=== PATIENT | male | born 1930 | race Caucasian/White ===

== ENCOUNTER 2018-05-26 11:32 | Inpatient (IN) | payer MEDICARE, BC ==
[2018-05-26] MEDS ORDERED: CLINDAMYCIN 600MG/50ML PREMIX 600 MG/50 ML BAG IVPB ONE (11:49)
[2018-05-26 12:04] LABS: BASO % 0.4 % (0-6); EOS % 0.7 % (0-6); GRAN % 78.7 % (47-80); LYMPH % 8.8 % (16-45); MEAN CELL VOLUME 93.2 fl (81-97); MEAN CORPUSCULAR HEMOGLOBIN 31.1 pg (27-33); MEAN CORPUSCULAR HGB CONC 33.3 g/dl (32-36); MONO % 11.4 % (0-9); PLATELET COUNT 301 K/uL (130-400); RED BLOOD COUNT 5.15 M/uL (4.40-5.70); WHITE BLOOD COUNT W/O DIFF 12.3 K/uL (4.2-12.2)
[2018-05-26 12:15] LABS: BLOOD UREA NITROGEN 17 mg/dL (8-23); CREATININE 1.1 mg/dL (0.7-1.2); EST GLOMERULAR FILTRATION RATE > 60 mL/min
[2018-05-26 12:17] LABS: GLUCOSE,RANDOM 125 mg/dL (74-109)
--- NOTE | 2018-05-26 12:41 | Emergency Department Record ---
History of Present Illness - General Chief complaint: Mouth sores/ulcers Stated complaint: INFECTION IN MOUTH Time Seen by Provider: 05/26/18 11:47 Source: Patient, RN notes reviewed Mode of Arrival: Ambulatory - History of Present Illness Initial comments: swollen left cheek which started about one week ago and he thought it was dental and called his dentist and started on oral clindamycin 150 mg last night and when he saw the dentist today the person had a swollen parotid gland and when the gland was milked pus came out of stensons duct in the mouth left side. dentist sent him to ED. Onset/Timin -: Week(s) Consistency: Constant Improves with: None Worsens with: Other Context- Dental: Other Associated Symptoms: Other - Related Data Home Medications Medication Instructions Recorded Confirmed Last Taken Clindamycin HCl 150 mg PO DAILY 05/26/18 05/26/18 Unknown Allergies Allergy/AdvReac Type Severity Reaction Status Date / Time cephalexin monohydrate Allergy Unknown RASH Unverified 04/27/15 00:55 [From KEFLEX] doxycycline [DOXYCYCLINE] Allergy Unknown RASH Unverified 04/27/15 00:55 hydrocodone bitartrate Allergy Unknown RASH Verified 05/26/18 11:42 [From VICODIN] sulfamethoxazole Allergy Unknown RASH Unverified 04/27/15 00:55 [From BACTRIM] trimethoprim [From BACTRIM] Allergy Unknown RASH Unverified 04/27/15 00:55 Travel Screening - Travel/Exposure Within Last 30 Days Have you traveled within the last 30 days?: No Review of Systems Reviewed: No additional complaints except as noted below Constitutional: Reports: As per HPI. Denies: Chills, Fever, Malaise, Night sweats, Weakness, Weight change Eyes: Reports: As per HPI. Denies: Eye discharge, Eye pain, Photophobia, Vision change ENT: Reports: As per HPI, Dental pain, Other (dental carries bad and left parotid gland swollen and pus comming from joe's duct ). Denies: Congestion , Ear pain, Epistaxis, Hearing loss, Throat pain Respiratory: Reports: As per HPI. Denies: Cough, Dyspnea, Hemoptysis, Stridor, Wheezes Cardiovascular: Reports: As per HPI. Denies: Arrhythmia, Chest pain, Dyspnea on exertion, Edema, Murmurs, Orthopnea, Palpitations, Paroxysmal nocturnal dyspnea, Rheumatic Fever, Syncope Endocrine: Reports: As per HPI. Denies: Fatigue, Heat or cold intolerance, Polydipsia, Polyuria Gastrointestinal: Reports: As per HPI. Denies: Abdominal pain, Constipation, Diarrhea, Hematemesis, Hematochezia, Melena, Nausea, Vomiting Genitourinary: Reports: As per HPI. Denies: Dysuria, Frequency, Hematuria, Incontinence, Retention, Testicular pain, Testicular mass, Urgency Musculoskeletal: Reports: As per HPI. Denies: Arthralgia, Back pain, Gout, Joint swelling, Myalgia, Neck pain Skin: Reports: As per HPI. Denies: Bruising, Change in color, Change in hair/ nails, Lesions, Pruritus, Rash Neurological: Reports: As per HPI. Denies: Abnormal gait, Confusion, Headache, Numbness, Paresthesias, Seizure, Tingling, Tremors, Vertigo, Weakness Psychiatric: Reports: As per HPI. Denies: Anxiety, Auditory hallucinations, Depression, Homicidal thoughts, Suicidal thoughts, Visual hallucinations Hematological/Lymphatic: Reports: As per HPI. Denies: Anemia, Blood Clots, Easy bleeding, Easy bruising, Swollen glands Past Medical History - SOCIAL HISTORY Smoking Status: Current every day smoker - RESPIRATORY Hx Respiratory Disorders: No - CARDIOVASCULAR Hx Cardio Disorders: Yes Hx Heart Attack: Yes Comment:: bradycardia - NEURO Hx Neuro Disorders: No - GI Hx GI Disorders: No - Hx Genitourinary Disorders: Yes Hx Bladder Problem: Yes (hx of cancer) Hx Kidney Stones: (hx) - ENDOCRINE Hx Endocrine Disorders: No Hx Diabetes: No Hx Thyroid Disease: No - MUSCULOSKELETAL Hx Musculoskeletal Disorders: No - PSYCH Hx Psych Problems: No - HEMATOLOGY/ONCOLOGY Hx Hematology/Oncology Disorders: Yes Hx Cancer: Yes Hx Chemotherapy: Yes Hx Radiation Therapy: No Family Medical History Any Significant Family History?: Yes Hx HTN: Father Physical Exam - General General Appearance: Alert, Oriented x3, Cooperative, No acute distress - Head Head exam: Normal inspection - Eye Eye exam: Normal appearance, PERRL Pupils: Normal accommodation - ENT ENT exam: Normal exam, Mucous membranes moist, Normal external ear exam, Normal orophraynx, TM's normal bilaterally Ear exam: Normal external inspection. negative: External canal tenderness Nasal Exam: Normal inspection. negative: Discharge, Sinus tenderness Mouth exam: Normal external inspection, Tongue normal Teeth exam: Dental caries, Dental tenderness #, Fractured tooth #, Other ( purulent drainage from joe's duct) Throat exam: Normal inspection. negative: Tonsillar erythema, Tonsillar exudate - Neck Neck exam: Normal inspection, Full ROM. negative: Tenderness - Respiratory Respiratory exam: Normal lung sounds bilaterally. negative: Respiratory distress - Cardiovascular Cardiovascular Exam: Regular rate, Normal rhythm, Normal heart sounds - GI/Abdominal GI/Abdominal exam: Soft, Normal bowel sounds. negative: Tenderness - Rectal Rectal exam: Deferred - exam: Deferred - Extremities Extremities exam: Normal inspection, Full ROM, Normal capillary refill. negative: Tenderness - Back Back exam: Reports: Normal inspection, Full ROM. Denies: Muscle spasm, Rash noted, Tenderness - Neurological Neurological exam: Alert, Normal gait, Oriented X3, Reflexes normal - Psychiatric Psychiatric exam: Normal affect, Normal mood - Skin Skin exam: Dry, Intact, Normal color, Warm Course Vital Signs 05/26/18 11:34 Temperature 97.6 F Pulse Rate 56 L Respiratory 20 Rate Blood Pressure 152/76 Pulse Ox 97 - Reevaluation(s) Reevaluation #1: 05/26/18 13:00 starting vancomycin 1 gm IV and pharmacy recommended every 18 hours Reevaluation #2: discussed case with Dr. Burgess and she agreed to admit 05/26/18 13:15 Medical Decision Making - Data Complexity MDM Data: Labs Ordered and/or Reviewed (WBC12,200) - Lab Data Result diagrams: 05/26/18 11:55 05/26/18 11:55 Lab Results 05/26/18 05/26/18 Range/Units 11:55 11:55 WBC 12.3 H (4.2-12.2) K/uL RBC 5.15 (4.40-5.70) M/uL Hgb 16.0 (14.0-18.0) gm/dl Hct 48.0 (42.0-52.0) % MCV 93.2 (81-97) fl MCH 31.1 (27-33) pg MCHC 33.3 (32-36) g/dl RDW 16.0 H (11.5-14.5) % Plt Count 301 (130-400) K/uL MPV 10.0 (7.4-10.4) fl Gran % 78.7 (47-80) % Lymphocytes % 8.8 L (16-45) % Monocytes % 11.4 H (0-9) % Eosinophils % 0.7 (0-6) % Basophils % 0.4 (0-6) % Sodium 141 (136-145) mmol/L Potassium 3.9 (3.4-4.5) mmol/L Chloride 99 (98-107) mmol/L Carbon Dioxide 27.0 (22-29) mmol/L Anion Gap 15.0 (7-16) BUN 17 (8-23) mg/dL Creatinine 1.1 (0.7-1.2) mg/dL Estimated GFR > 60 mL/min Random Glucose 125 H (74-109) mg/dL Calcium 9.6 (8.8-10.2) mg/dL Disposition Clinical Impression: Parotiditis Decision to Admit: Admit from ER Condition: (1) Good Forms: Patient Portal Access Time of Disposition: 12:45 Quality - Quality Measures Quality Measures: N/A - Blood Pressure Screening Does Patient Have Any of the Following: No, Active Dx of HTN Blood Pressure Classification: Hypertensive Reading Systolic Measurement: 152 Diastolic Measurement: 76 Screening for High Blood Pressure: Patient Exclusion, Hx of HTN [[id number]]
[2018-05-26] MEDS ORDERED: VANCOMYCIN HCL 1,000 MG in DEXTROSE 5 % IN WATER 250 ML IVPB ONE ×2 (12:45)
[2018-05-26] MEDS ORDERED: ACETAMINOPHEN 325 MG TAB PO PRN (13:51)
[2018-05-26] MEDS: 0.9 % SODIUM CHLORIDE 1000ML 1,000 ML IV PRN (17:59)
[2018-05-26] MEDS: CLINDAMYCIN 600MG/50ML PREMIX 600 MG/50 ML BAG IVPB SCH ×2 (17:59→23:18)
[2018-05-26] MEDS: IBUPROFEN 400 MG TABLET PO PRN (18:05)
[2018-05-27] MEDS: IBUPROFEN 400 MG TABLET PO PRN (05:19)
[2018-05-27] MEDS: CLINDAMYCIN 600MG/50ML PREMIX 600 MG/50 ML BAG IVPB SCH ×3 (05:19→17:45)
[2018-05-27 06:12] LABS: HEMATOCRIT 44.2 % (42.0-52.0); HEMOGLOBIN 14.5 gm/dl (14.0-18.0); MEAN CELL VOLUME 93.8 fl (81-97); MEAN CORPUSCULAR HEMOGLOBIN 30.8 pg (27-33); MEAN CORPUSCULAR HGB CONC 32.8 g/dl (32-36); MEAN PLATELET VOLUME 11.3 fl (7.4-10.4); PLATELET COUNT 252 K/uL (130-400); RED BLOOD COUNT 4.71 M/uL (4.40-5.70); RED CELL DISTRIBUTION WIDTH 16.1 % (11.5-14.5); WHITE BLOOD COUNT W/O DIFF 11.1 K/uL (4.2-12.2)
[2018-05-27 06:23] LABS: BLOOD UREA NITROGEN 18 mg/dL (8-23); CREATININE 1.2 mg/dL (0.7-1.2); EST GLOMERULAR FILTRATION RATE > 60 mL/min; GLUCOSE,RANDOM 86 mg/dL (74-109)
[2018-05-27] MEDS ORDERED: VANCOMYCIN HCL 1,000 MG in DEXTROSE 5 % IN WATER 250 ML IVPB SCH ×2 (07:00)
[2018-05-27] MEDS ORDERED: VERAPAMIL ER 120 MG TABLET PO SCH (10:00)
--- NOTE | 2018-05-27 10:10 | History & Physical ---
History of Present Illness - Date of Service Date of Service for History & Physical: 05/27/18 - History of Present Illness Admitting Diagnosis: Parotitis History of Present Illness: Past Medical History: dental caries, hypertension, [place], s/p cholecystecomy/colon resection, bladder cancer treated with chemo, kidney stones, current everyday smoker of 60 years, Hearing loss Pt is a poor historian Patient is an 87 year old male who presented to the ED on 05/26/18 complaining of painful left sided facial swelling in the preauricular region that extends down to the neck. He first noticed the swelling a week and a half ago, but believed it was related to his dental issues. He went in to visit his dentist, who noted that the parotid gland was swollen and that when pressed firmly it expressed pus through stensen's duct and recommended he come to the ER. The patient notes that he had been taking Aleve and motrin at home to control the pain, which helped quite a bit, although Tylenol had no effect. It causes him some mild increase in pain to eat, but otherwise nothing has particularly exacerbated the pain. It is constant, and not correlated to any particular timing. Pt was admitted for IV abx and possible surgical drainage of parotid gland. 05/27/18 He states that he does not think the swelling has gone down since yesterday, but that his pain is better. He complains of constipation over the past 3 days. Otherwise no complaints. Travel Screening - Travel/Exposure Within Last 30 Days Have you traveled within the last 30 days?: No - Travel/Exposure Within Last Year Have you traveled outside the [place] in the last year?: No - Additonal Travel Details Have you been exposed to anyone with a communicable illness?: No - Travel Symptoms Symptom Screening: None Review of Systems Constitutional: Denies: Chills, Fever, Malaise Eyes: Denies: Vision change ENT: Reports: Dental pain, Other (dental carries and left parotid gland swollen and pus comming from joe's duct ). Denies: Congestion, Ear pain, Epistaxis , Hearing loss, Throat pain Respiratory: Denies: Cough, Dyspnea, Wheezes Cardiovascular: Denies: Chest pain, Edema Endocrine: Denies: Fatigue, Polyuria Gastrointestinal: Reports: Constipation. Denies: Abdominal pain, Diarrhea, Nausea, Vomiting Genitourinary: Denies: Dysuria, Frequency Musculoskeletal: Denies: Neck pain Skin: Reports: Change in color (erythema ) Neurological: Denies: Headache Hematological/Lymphatic: Reports: Swollen glands (parotid) Past Medical History - SOCIAL HISTORY Smoking Status: Current every day smoker Alcohol Use: None Drug Use: None - RESPIRATORY Hx Respiratory Disorders: No - CARDIOVASCULAR Hx Cardio Disorders: Yes Hx Heart Attack: Yes Hx Hypertension: Yes (Patient account inconsistent but currently on UZAIR meds and has elevated BP ) Comment:: bradycardia - NEURO Hx Neuro Disorders: No - GI Hx GI Disorders: No - Hx Genitourinary Disorders: Yes Hx Bladder Problem: Yes (hx of cancer) Hx Kidney Stones: Yes (hx) - ENDOCRINE Hx Endocrine Disorders: No Hx Diabetes: No Hx Thyroid Disease: No - MUSCULOSKELETAL Hx Musculoskeletal Disorders: No - PSYCH Hx Psych Problems: No - HEMATOLOGY/ONCOLOGY Hx Hematology/Oncology Disorders: Yes Hx Cancer: Yes Hx Chemotherapy: Yes Hx Radiation Therapy: No Family Medical History Any Significant Family History?: Yes Hx HTN: Father H&P Meds/Allergies - Allergies Allergies: Allergies Allergy/AdvReac Type Severity Reaction Status Date / Time cephalexin monohydrate Allergy Unknown RASH Unverified 04/27/15 00:55 [From KEFLEX] doxycycline [DOXYCYCLINE] Allergy Unknown RASH Unverified 04/27/15 00:55 hydrocodone bitartrate Allergy Unknown RASH Verified 05/26/18 11:42 [From VICODIN] sulfamethoxazole Allergy Unknown RASH Unverified 04/27/15 00:55 [From BACTRIM] trimethoprim [From BACTRIM] Allergy Unknown RASH Unverified 04/27/15 00:55 - Home Medications Home Medications Medication Instructions Recorded Confirmed Last Taken Clindamycin HCl 150 mg PO DAILY 05/26/18 05/26/18 Unknown - Active Medications Active Medications: Current Medications Acetaminophen (Tylenol 325mg) 650 mg PO Q6H PRN PRN Reason: PAIN - MILD(1-4)/FEVER Last Admin: 05/27/18 08:29 Dose: 650 mg Amlodipine Besylate (Norvasc) 10 mg PO DAILY [facility] Aspirin (Ecotrin (Ec)) 81 mg PO DAILY [facility] Enoxaparin Sodium (Lovenox) 40 mg SQ DAILY [facility] Sodium Chloride () 1,000 mls @ 50 mls/hr IV .Q20H PRN PRN Reason: LARGE VOLUME IV Last Admin: 05/26/18 17:59 Dose: 50 mls/hr Vancomycin HCl 1,000 mg/ (Dextrose) 250 mls @ 250 mls/hr IVPB Q18H [facility] Stop: 06/01/18 07:01 Last Infusion: 05/27/18 07:07 Dose: Infused Clindamycin Phosphate (Cleocin 600 [id number]) 600 mg in 50 mls @ 100 mls/ hr IVPB Q6HR [facility] Last Infusion: 05/27/18 05:59 Dose: Infused Ibuprofen (Motrin 400mg) 800 mg PO Q8H PRN PRN Reason: PAIN - MILD TO MODERATE (1-7) Last Admin: 05/27/18 05:19 Dose: 800 mg Lisinopril (Zestril) 20 mg PO DAILY [facility] Physical Exam - Vital Signs Vital Signs: Vital Signs - Last 24 Hrs Temp Pulse Pulse Resp BP BP Pulse Ox 05/27/18 08:55 97.8 F 51 L 18 130/59 95 05/27/18 06:00 97.8 F 55 L 20 139/61 95 05/27/18 00:00 97.6 F 50 L 18 111/51 94 L 05/26/18 20:37 62 18 05/26/18 20:00 98.7 F 53 L 18 131/55 95 05/26/18 18:00 98.1 F 62 18 148/67 95 05/26/18 15:21 16 05/26/18 14:11 66 18 135/66 93 L 05/26/18 14:00 97.8 F 56 L 18 142/61 98 05/26/18 11:34 97.6 F 56 L 20 152/76 97 - General General Appearance: Alert, Oriented x3, Cooperative, No acute distress - Head Head exam: Normal inspection Head exam detail: Other (Firm swelling in the left preauricular area, extending down to neck. Slightly erythematous. ) - Eye Eye exam: Normal appearance, PERRL Pupils: Normal accommodation - ENT ENT exam: Mucous membranes moist, Normal external ear exam, Normal orophraynx Ear exam: Normal external inspection. negative: External canal tenderness Nasal Exam: Normal inspection. negative: Discharge, Sinus tenderness Mouth exam: Normal external inspection, Tongue normal, Other (significant hard swelling of the L parotid gland, mild overlying erythema, no warmth to palpation. No grimacing on palpation but when asked the pt does complain of pain with palpation. ) Teeth exam: Dental caries (diffuse) Throat exam: Normal inspection. negative: Tonsillar erythema, Tonsillar exudate - Neck Neck exam: Normal inspection, Full ROM. negative: Tenderness - Respiratory Respiratory exam: Normal lung sounds bilaterally. negative: Decreased breath sounds, Respiratory distress, Wheezes - Cardiovascular Cardiovascular Exam: Regular rate, Normal rhythm, Normal heart sounds - GI/Abdominal GI/Abdominal exam: Soft, Normal bowel sounds. negative: Tenderness - Rectal Rectal exam: Deferred - exam: Deferred - Extremities Extremities exam: Normal inspection, Full ROM, Normal capillary refill. negative: Pedal edema, Tenderness - Back Back exam: Reports: Full ROM - Neurological Neurological exam: Alert, Normal gait, Oriented X3, Reflexes normal - Psychiatric Psychiatric exam: Normal affect, Normal mood - Skin Skin exam: Dry, Intact, Warm Results - Labs Result Diagrams: 05/27/18 05:45 05/27/18 05:45 Labs Last 24 Hours: Laboratory Results - last 24 hr 05/26/18 05/26/18 05/27/18 11:55 11:55 05:45 WBC 12.3 H 11.1 RBC 5.15 4.71 Hgb 16.0 14.5 Hct 48.0 44.2 MCV 93.2 93.8 MCH 31.1 30.8 MCHC 33.3 32.8 RDW 16.0 H 16.1 H Plt Count 301 252 MPV 10.0 11.3 H Gran % 78.7 Neutrophils % 70.0 Band Neutrophils % 0.0 Lymphocytes % 8.8 L Monocytes % 11.4 H Eosinophils % 0.7 Not Reportable Basophils % 0.4 Not Reportable Lymphocytes 15.0 L Monocytes 13.0 H Basophils 0.0 Eosinophil Count 2.0 Sodium 141 Potassium 3.9 Chloride 99 Carbon Dioxide 27.0 Anion Gap 15.0 BUN 17 Creatinine 1.1 Estimated GFR > 60 Random Glucose 125 H Calcium 9.6 05/27/18 05:45 WBC RBC Hgb Hct MCV MCH MCHC RDW Plt Count MPV Gran % Neutrophils % Band Neutrophils % Lymphocytes % Monocytes % Eosinophils % Basophils % Lymphocytes Monocytes Basophils Eosinophil Count Sodium 140 Potassium 4.4 Chloride 101 Carbon Dioxide 25.0 Anion Gap 14.0 BUN 18 Creatinine 1.2 Estimated GFR > 60 Random Glucose 86 Calcium 9.1 VTE H&P Assessment - Risk for VTE Risk for VTE: Yes Risk Level: Moderate (no chemical VTE prophylaxis indicated, will encourage ambulation) Risk Assessment Date: 05/27/18 Risk Assessment Time: 12:18 VTE Orders Placed or Will Be Placed: Yes Plan - Inpatient Certification Inpatient Certification: Admit to inpatient care: Based on my medical assessment, after consideration of patient's risk factors (age, co-morbidities and patient presenting symptoms and acuity), I expect that this patient will remain in the hospital greater than or equal to two midnights and that the services needed warrant inpatient care because: Patient Risk Factors: [] Estimated length of stay: [] The patient may reasonably be expected to be discharged or transferred to a hospital within 96 hours after admission to [facility]. Services needed: [] Post hospital care (if known): [] I certify that my determination is in accordance with my understanding of Medicare requirements for reasonable and necessary inpatient services. - Detailed Diagnosis and Plan (1) Parotiditis Current Visit: Yes Status: Acute Base Code: K11.20 - SIALOADENITIS, UNSPECIFIED Priority: High Comment: 05/27/18: - IV Vanco and clinda - ibuprofen 800 Q8 hours for pain. - Tramadol for breakthrough. - Pt states tylenol not working. - Continue to monitor for onset of new symptoms and possible expansion of infection (2) HTN, goal below 150/90 Current Visit: Yes Status: Chronic Base Code: I10 - ESSENTIAL (PRIMARY) HYPERTENSION Priority: Low Comment: 05/27/18 - Continue home medications as prescribed. (3) DVT prophylaxis Current Visit: Yes Status: Acute Base Code: [id number] - Priority: Medium Comment: 05/27/18: - SCD's in bed. -Nursing to continue to encourage ambulation (4) Full code status Current Visit: Yes Status: Acute Base Code: Z78.9 - OTHER SPECIFIED HEALTH STATUS Comment: 05/27/18: Patient is full code status this admission - Disposition Home with improvement of symptoms and confirmation of lack of need for surgical I&D
[2018-05-27] MEDS ORDERED: POLYETHYLENE GLY 17 GM PACKET PO PRN (10:28)
[2018-05-27] MEDS ORDERED: TRAMADOL HCL 50 MG TABLET PO ONE (10:30)
[2018-05-27] MEDS: LISINOPRIL 20 MG TABLET PO SCH (10:51)
[2018-05-27] MEDS: ENOXAPARIN 40 MG/0.4 ML SYR SQ SCH (10:51)
[2018-05-27] MEDS: AMLODIPINE BESYLATE 5MG TAB PO SCH (10:51)
[2018-05-27] MEDS: ASPIRIN 81 MG TABEC PO SCH (10:51)
[2018-05-27] MEDS ORDERED: KETOROLAC 30 MG/ML VIAL IVP ONE (12:56)
[2018-05-27] MEDS ORDERED: TRAMADOL HCL 50 MG TABLET PO PRN (12:58)
[2018-05-27] MEDS: ACETAMINOPHEN 500 MG TABLET PO SCH ×2 (13:35→19:38)
[2018-05-27] MEDS: 0.9 % SODIUM CHLORIDE 1000ML 1,000 ML IV PRN (17:40)
[2018-05-28] MEDS: CLINDAMYCIN 600MG/50ML PREMIX 600 MG/50 ML BAG IVPB SCH ×5 (00:27→23:27)
[2018-05-28] MEDS: VANCOMYCIN HCL 1,000 MG in DEXTROSE 5 % IN WATER 250 ML IVPB SCH ×4 (01:00→18:35)
[2018-05-28] MEDS: ACETAMINOPHEN 500 MG TABLET PO SCH ×4 (01:00→20:01)
[2018-05-28 06:31] LABS: HEMATOCRIT 38.7 % (42.0-52.0); HEMOGLOBIN 12.3 gm/dl (14.0-18.0); MEAN CORPUSCULAR HGB CONC 31.8 g/dl (32-36); PLATELET COUNT 258 K/uL (130-400); RED BLOOD COUNT 4.16 M/uL (4.40-5.70); RED CELL DISTRIBUTION WIDTH 16.1 % (11.5-14.5); WHITE BLOOD COUNT W/O DIFF 8.1 K/uL (4.2-12.2)
[2018-05-28 06:32] LABS: MEAN CORPUSCULAR HEMOGLOBIN 29.5 pg (27-33)
[2018-05-28 06:34] LABS: BLOOD UREA NITROGEN 21 mg/dL (8-23); CREATININE 1.1 mg/dL (0.7-1.2); EST GLOMERULAR FILTRATION RATE > 60 mL/min; GLUCOSE,RANDOM 92 mg/dL (74-109)
[2018-05-28] MEDS ORDERED: KETOROLAC 30 MG/ML VIAL IVP ONE (08:42)
[2018-05-28] MEDS: LISINOPRIL 20 MG TABLET PO SCH (09:05)
[2018-05-28] MEDS: ASPIRIN 81 MG TABEC PO SCH (09:05)
[2018-05-28] MEDS: AMLODIPINE BESYLATE 5MG TAB PO SCH (09:05)
[2018-05-28] MEDS: ENOXAPARIN 40 MG/0.4 ML SYR SQ SCH (09:05)
--- NOTE | 2018-05-28 11:25 | Physician Progress Note ---
Subjective - Date Date of Physician Progress Note: 05/28/18 - Subjective Subjective Comment: Pt states that after eating today he noticed increased pain in the left preauricular area. He does state that it feels a little smaller. He also states that he has not had a BM yet. Objective - Vital Signs Vital Signs: Vital Signs - Last 24 Hrs Temp Pulse Resp BP Pulse Ox 05/28/18 09:38 98.0 F 58 L 16 138/61 96 05/28/18 09:00 60 18 05/28/18 06:00 97.7 F 51 L 18 126/51 93 L 05/27/18 23:56 98.1 F 50 L 18 119/56 94 L 05/27/18 20:00 98.3 F 49 L 20 132/58 93 L 05/27/18 19:45 16 05/27/18 18:00 98.8 F 51 L 16 111/53 94 L 05/27/18 14:00 98.1 F 93 H 18 130/58 93 L - General General Appearance: Alert, Oriented x3, Cooperative, No acute distress - Head Head exam: Normal inspection Head exam detail: Other (Firm swelling in the left preauricular area, extending down to neck. slightly reduced from yesterday, not as hard and smaller.) - Eye Eye exam: Normal appearance, PERRL Pupils: Normal accommodation - ENT ENT exam: Mucous membranes moist, Normal external ear exam, Normal orophraynx Ear exam: Normal external inspection. negative: External canal tenderness Nasal Exam: Normal inspection. negative: Discharge, Sinus tenderness Mouth exam: Normal external inspection, Tongue normal, Other (firm swelling of the L parotid gland, no warmth to palpation. ) Teeth exam: Dental caries (diffuse) Throat exam: Normal inspection. negative: Tonsillar erythema, Tonsillar exudate - Neck Neck exam: Normal inspection, Full ROM. negative: Tenderness - Respiratory Respiratory exam: Normal lung sounds bilaterally. negative: Decreased breath sounds, Respiratory distress, Wheezes - Cardiovascular Cardiovascular Exam: Regular rate, Normal rhythm, Normal heart sounds - GI/Abdominal GI/Abdominal exam: Soft, Hypoactive bowel sounds. negative: Tenderness - Rectal Rectal exam: Deferred - exam: Deferred - Extremities Extremities exam: Normal inspection, Full ROM, Normal capillary refill. negative: Pedal edema, Tenderness - Back Back exam: Reports: Full ROM - Neurological Neurological exam: Alert, Normal gait, Oriented X3, Reflexes normal - Psychiatric Psychiatric exam: Normal affect, Normal mood - Skin Skin exam: Dry, Intact, Warm Assessment and Plan - Assessment and Plan (1) Parotiditis Current Visit: Yes Status: Acute Base Code: K11.20 - SIALOADENITIS, UNSPECIFIED Priority: High Comment: 05/28/18: - Improving. - IV Vanco and clinda - ibuprofen 800 Q8 hours for pain. - Tramadol for breakthrough. - Pt states tylenol not working. - Surgery c/s to decide if I&D warranted. (2) HTN, goal below 150/90 Current Visit: Yes Status: Chronic Base Code: I10 - ESSENTIAL (PRIMARY) HYPERTENSION Priority: Low Comment: 05/28/18 - Continue home medications as prescribed. (3) DVT prophylaxis Current Visit: Yes Status: Acute Base Code: [id number] - Priority: Medium Comment: 05/28/18: - SCD's in bed. -Nursing to continue to encourage ambulation (4) DNR (do not resuscitate) Current Visit: Yes Status: Acute Base Code: Z66 - DO NOT RESUSCITATE Priority: High Comment: Discussed in depth with pt and he states that he would like to be DNR - Disposition Disposition: Home with improvement of symptoms and confirmation of lack of need for surgical I&D Results - Labs Result Diagrams: 05/28/18 05:58 05/28/18 05:58 Labs Last 24 Hours: Laboratory Results - last 24 hr 05/28/18 05/28/18 05:58 05:58 WBC 8.1 RBC 4.16 L Hgb 12.3 L Hct 38.7 L MCV 93.0 MCH 29.5 MCHC 31.8 L RDW 16.1 H Plt Count 258 MPV 11.0 H Neutrophils % 68.0 Band Neutrophils % 0.0 Eosinophils % Not Reportable Basophils % Not Reportable Lymphocytes 12.0 L Monocytes 16.0 H Basophils 0.0 Eosinophil Count 4.0 Sodium 141 Potassium 4.2 Chloride 104 Carbon Dioxide 26.0 Anion Gap 11.0 BUN 21 Creatinine 1.1 Estimated GFR > 60 Random Glucose 92 Calcium 8.7 L DVT/PE Assessment - Risk for VTE Risk for VTE: No Risk Level: Moderate (no chemical VTE prophylaxis indicated, will encourage ambulation) Risk Assessment Date: 05/27/18 Risk Assessment Time: 12:18 VTE Orders Placed or Will Be Placed: Yes - Active Medicaitons Current Medications: Current Medications Acetaminophen (Tylenol 500mg Tab) 1,000 mg PO Q6H [facility] Last Admin: 05/28/18 06:04 Dose: Not Given Amlodipine Besylate (Norvasc) 10 mg PO DAILY [facility] Last Admin: 05/28/18 09:05 Dose: 10 mg Aspirin (Ecotrin (Ec)) 81 mg PO DAILY [facility] Last Admin: 05/28/18 09:05 Dose: 81 mg Enoxaparin Sodium (Lovenox) 40 mg SQ DAILY [facility] Last Admin: 05/28/18 09:05 Dose: 40 mg Sodium Chloride () 1,000 mls @ 50 mls/hr IV .Q20H PRN PRN Reason: LARGE VOLUME IV Last Admin: 05/27/18 17:40 Dose: 50 mls/hr Clindamycin Phosphate (Cleocin 600 [id number]) 600 mg in 50 mls @ 100 mls/ hr IVPB Q6HR [facility] Last Infusion: 05/28/18 06:37 Dose: Infused Vancomycin HCl 1,000 mg/ (Dextrose) 250 mls @ 250 mls/hr IVPB Q18H [facility] Stop: 06/01/18 07:00 Last Infusion: 05/28/18 02:06 Dose: Infused Lisinopril (Zestril) 20 mg PO DAILY [facility] Last Admin: 05/28/18 09:05 Dose: 20 mg Polyethylene Glycol (Miralax) 17 gm PO DAILY PRN PRN Reason: CONSTIPATION Last Admin: 05/27/18 10:51 Dose: 17 gm Senna/Docusate Sodium (Senna Plus) 2 each PO BID [facility] Tramadol HCl (Ultram) 50 mg PO Q6H PRN PRN Reason: PAIN - MOD TO SEVERE (5-10) AMI Plan - Labs Result Diagrams: 05/28/18 05:58 05/28/18 05:58
[2018-05-28] MEDS: SENNOSIDES/DOCUSATE SODIUM UD CAPSULE PO SCH ×2 (12:59→21:21)
[2018-05-28] MEDS: 0.9 % SODIUM CHLORIDE 1000ML 1,000 ML IV PRN (17:44)
[2018-05-29] MEDS: ACETAMINOPHEN 500 MG TABLET PO SCH ×2 (03:17→06:55)
[2018-05-29] MEDS: CLINDAMYCIN 600MG/50ML PREMIX 600 MG/50 ML BAG IVPB SCH ×2 (06:08→12:01)
[2018-05-29 06:55] LABS: BASO % 0.8 % (0-6); EOS % 3.7 % (0-6); GRAN % 71.4 % (47-80); HEMATOCRIT 38.6 % (42.0-52.0); HEMOGLOBIN 12.1 gm/dl (14.0-18.0); LYMPH % 12.9 % (16-45); MEAN CELL VOLUME 93.5 fl (81-97); MEAN CORPUSCULAR HGB CONC 31.3 g/dl (32-36); MEAN PLATELET VOLUME 10.3 fl (7.4-10.4); MONO % 11.2 % (0-9); PLATELET COUNT 283 K/uL (130-400); RED BLOOD COUNT 4.13 M/uL (4.40-5.70); RED CELL DISTRIBUTION WIDTH 16.1 % (11.5-14.5); WHITE BLOOD COUNT W/O DIFF 7.6 K/uL (4.2-12.2)
[2018-05-29 06:57] LABS: MEAN CORPUSCULAR HEMOGLOBIN 29.2 pg (27-33)
[2018-05-29 07:08] LABS: BLOOD UREA NITROGEN 14 mg/dL (8-23); CREATININE 1.1 mg/dL (0.7-1.2); EST GLOMERULAR FILTRATION RATE > 60 mL/min; GLUCOSE,RANDOM 91 mg/dL (74-109)
[2018-05-29] MEDS: ASPIRIN 81 MG TABEC PO SCH (09:51)
[2018-05-29] MEDS: LISINOPRIL 20 MG TABLET PO SCH (09:51)
[2018-05-29] MEDS: AMLODIPINE BESYLATE 5MG TAB PO SCH (09:51)
[2018-05-29] MEDS: SENNOSIDES/DOCUSATE SODIUM UD CAPSULE PO SCH ×2 (09:51→22:43)
[2018-05-29] MEDS: ENOXAPARIN 40 MG/0.4 ML SYR SQ SCH (09:51)
[2018-05-29] MEDS ORDERED: NAPROXEN 250 MG TABLET PO PRN (10:34)
[2018-05-29] MEDS ORDERED: ACETAMINOPHEN 500 MG TABLET PO PRN (10:34)
--- NOTE | 2018-05-29 10:54 | Physician Progress Note ---
Subjective - Date Date of Physician Progress Note: 05/29/18 - Subjective Subjective Comment: Pt states that he doesn't have any pain today. States that the swelling has decreased. Had a small BM yesterday. Objective - Vital Signs Vital Signs: Vital Signs - Last 24 Hrs Temp Pulse Resp BP Pulse Ox 05/29/18 09:25 98.2 F 56 L 16 135/70 94 L 05/29/18 06:00 98.6 F 54 L 18 134/62 95 05/28/18 23:46 98.1 F 50 L 18 140/54 96 05/28/18 20:12 56 L 16 05/28/18 20:00 98.6 F 50 L 18 130/61 95 05/28/18 18:00 98.4 F 56 L 16 114/58 98 05/28/18 14:00 98.8 F 55 L 18 132/62 94 L - General General Appearance: Alert, Oriented x3, Cooperative, No acute distress - Head Head exam: Normal inspection Head exam detail: Other (Firm swelling in the left preauricular area size of golfball, further reduced from yesterday. ) - Eye Eye exam: Normal appearance, PERRL Pupils: Normal accommodation - ENT ENT exam: Mucous membranes moist, Normal external ear exam, Normal orophraynx Ear exam: Normal external inspection. negative: External canal tenderness Nasal Exam: Normal inspection. negative: Discharge, Sinus tenderness Mouth exam: Normal external inspection, Tongue normal, Other (firm swelling of the L parotid gland, no warmth to palpation. ) Teeth exam: Dental caries (diffuse) Throat exam: Normal inspection. negative: Tonsillar erythema, Tonsillar exudate - Neck Neck exam: Normal inspection, Full ROM. negative: Tenderness - Respiratory Respiratory exam: Normal lung sounds bilaterally. negative: Decreased breath sounds, Respiratory distress, Wheezes - Cardiovascular Cardiovascular Exam: Regular rate, Normal rhythm, Normal heart sounds - GI/Abdominal GI/Abdominal exam: Soft, Hypoactive bowel sounds. negative: Tenderness - Rectal Rectal exam: Deferred - exam: Deferred - Extremities Extremities exam: Normal inspection, Full ROM, Normal capillary refill. negative: Pedal edema, Tenderness - Back Back exam: Reports: Full ROM - Neurological Neurological exam: Alert, Normal gait, Oriented X3, Reflexes normal - Psychiatric Psychiatric exam: Normal affect, Normal mood - Skin Skin exam: Dry, Intact, Warm Assessment and Plan - Assessment and Plan (1) Parotiditis Current Visit: Yes Status: Acute Base Code: K11.20 - SIALOADENITIS, UNSPECIFIED Priority: High Comment: 05/28/18: - Improving. - IV Vanco and clinda - Naproxen 500mg BID PRN for pain - Pt states tylenol not working. - Dr. Mccoy states that he will not be able to do the procedure and ENT will be needed. - Called [facility] ENT vocational rehab consultant and they suggested CT neck w/ contrast to see if abscess actually present. If present, will need to be transferred to [facility] for I&D. - If not, then encourage pt to milk the area, IVF, and wait for cx to result and treat accordingly per ENT. (2) HTN, goal below 150/90 Current Visit: Yes Status: Chronic Base Code: I10 - ESSENTIAL (PRIMARY) HYPERTENSION Priority: Low Comment: 05/28/18 - Continue home medications as prescribed. (3) DVT prophylaxis Current Visit: Yes Status: Acute Base Code: [id number] - Priority: Medium Comment: 05/28/18: - SCD's in bed. -Nursing to continue to encourage ambulation (4) DNR (do not resuscitate) Current Visit: Yes Status: Acute Base Code: Z66 - DO NOT RESUSCITATE Priority: High Comment: Discussed in depth with pt and he states that he would like to be DNR - Disposition Disposition: Home with improvement of symptoms and confirmation of lack of need for surgical I&D Results - Labs Result Diagrams: 05/29/18 06:28 05/29/18 06:28 Labs Last 24 Hours: Laboratory Results - last 24 hr 05/28/18 05/29/18 05/29/18 18:45 06:28 06:28 WBC 7.6 RBC 4.13 L Hgb 12.1 L Hct 38.6 L MCV 93.5 MCH 29.2 MCHC 31.3 L RDW 16.1 H Plt Count 283 MPV 10.3 Gran % 71.4 Lymphocytes % 12.9 L Monocytes % 11.2 H Eosinophils % 3.7 Basophils % 0.8 Sodium 141 Potassium 4.5 Chloride 104 Carbon Dioxide 27.0 Anion Gap 10.0 BUN 14 Creatinine 1.1 Estimated GFR > 60 Random Glucose 91 Calcium 8.7 L Vancomycin Trough 20.9 H* DVT/PE Assessment - Risk for VTE Risk for VTE: No Risk Level: Moderate (no chemical VTE prophylaxis indicated, will encourage ambulation) Risk Assessment Date: 05/27/18 Risk Assessment Time: 12:18 VTE Orders Placed or Will Be Placed: Yes - Active Medicaitons Current Medications: Current Medications Acetaminophen (Tylenol 500mg Tab) 1,000 mg PO Q6H PRN PRN Reason: PAIN - MILD (1-4) Amlodipine Besylate (Norvasc) 10 mg PO DAILY ON LICENSE OF [facility] Last Admin: 05/29/18 09:51 Dose: 10 mg Aspirin (Ecotrin (Ec)) 81 mg PO DAILY [facility] Last Admin: 05/29/18 09:51 Dose: 81 mg Enoxaparin Sodium (Lovenox) 40 mg SQ DAILY ON LICENSE OF [facility] Last Admin: 05/29/18 09:51 Dose: 40 mg Sodium Chloride () 1,000 mls @ 50 mls/hr IV .Q20H PRN PRN Reason: LARGE VOLUME IV Last Admin: 05/28/18 17:44 Dose: 50 mls/hr Clindamycin Phosphate (Cleocin 600 [id number]) 600 mg in 50 mls @ 100 mls/ hr IVPB Q6HR ON LICENSE OF [facility] Last Infusion: 05/29/18 06:54 Dose: Infused Vancomycin HCl 1,000 mg/ (Dextrose) 250 mls @ 250 mls/hr IVPB Q18H ON LICENSE OF [facility] Stop: 06/01/18 07:00 Last Infusion: 05/28/18 20:02 Dose: Infused Lisinopril (Zestril) 20 mg PO DAILY ON LICENSE OF [facility] Last Admin: 05/29/18 09:51 Dose: 20 mg Naproxen (Naprosyn) 500 mg PO Q12H PRN PRN Reason: PAIN - MILD TO MODERATE (1-7) Polyethylene Glycol (Miralax) 17 gm PO DAILY PRN PRN Reason: CONSTIPATION Last Admin: 05/27/18 10:51 Dose: 17 gm Senna/Docusate Sodium (Senna Plus) 2 each PO BID ON LICENSE OF [facility] Last Admin: 05/29/18 09:51 Dose: 2 each AMI Plan - Labs Result Diagrams: 05/29/18 06:28 05/29/18 06:28
[2018-05-29] MEDS: 0.9 % SODIUM CHLORIDE 1000ML 1,000 ML IV PRN ×2 (12:02→16:51)
[2018-05-29] MEDS: VANCOMYCIN HCL 1,000 MG in DEXTROSE 5 % IN WATER 250 ML IVPB SCH ×2 (12:30)
[2018-05-29] MEDS: CIPROFLOXACIN HCL 500 MG TABLET PO SCH ×2 (20:45→22:41)
[2018-05-29] MEDS: CLINDAMYCIN 150 MG CAP PO SCH (22:41)
[2018-05-30] MEDS: 0.9 % SODIUM CHLORIDE 1000ML 1,000 ML IV PRN ×3 (03:30→21:28)
[2018-05-30 06:11] LABS: BASO % 1.1 % (0-6); EOS % 3.6 % (0-6); GRAN % 66.8 % (47-80); HEMATOCRIT 38.9 % (42.0-52.0); HEMOGLOBIN 12.4 gm/dl (14.0-18.0); LYMPH % 15.5 % (16-45); MEAN CELL VOLUME 93.1 fl (81-97); MEAN CORPUSCULAR HGB CONC 31.9 g/dl (32-36); MEAN PLATELET VOLUME 10.4 fl (7.4-10.4); PLATELET COUNT 320 K/uL (130-400); RED BLOOD COUNT 4.18 M/uL (4.40-5.70); RED CELL DISTRIBUTION WIDTH 16.3 % (11.5-14.5); WHITE BLOOD COUNT W/O DIFF 7.5 K/uL (4.2-12.2)
[2018-05-30 06:18] LABS: MEAN CORPUSCULAR HEMOGLOBIN 29.6 pg (27-33)
[2018-05-30] MEDS: CLINDAMYCIN 150 MG CAP PO SCH ×3 (06:19→21:25)
[2018-05-30 06:22] LABS: BLOOD UREA NITROGEN 13 mg/dL (8-23); CREATININE 1.2 mg/dL (0.7-1.2); EST GLOMERULAR FILTRATION RATE > 60 mL/min; GLUCOSE,RANDOM 92 mg/dL (74-109)
--- NOTE | 2018-05-30 07:33 | CT SCAN REPORT ---
EXAM: EMERGENCY CT SCAN OF THE NECK WITH CONTRAST HISTORY: ENLARGED LEFT PAROTID GLAND, POSSIBLE ABSCESS. TECHNIQUE: Axial CT scan of the neck was performed following intravenous administration of iodated contrast media. Please see the medical record for IV contrast specifics. Comparison: No prior neck CT with which to compare. FINDINGS: The visualized paranasal sinuses appear essentially clear. The mastoids also appear clear. There is multilevel degenerative change in the cervical spine with narrowing of the third through the sixth cervical interspaces with associated hypertrophic spurring consistent with degenerative disk disease throughout these levels. Prominent degenerative change at the odontoid-anterior arch of C1 articulation as well and there is multilevel facet joint arthropathy in the cervical spine. No prevertebral soft tissue swelling is evident. The epiglottis is of normal size. The left parotid gland appears larger than the right and of somewhat greater density fairly diffusely. This may represent parotiditis, however, a definite discreet abscess is not identified within the parotid. No right parotid mass evident. No submandibular gland mass identified on either side. No thyroid nodule seen. Some normal sized cervical nodes are seen, but no definite cervical adenopathy identified. No superior mediastinal adenopathy is seen. There is a small amount of fluid in the superior pericardial recess. The left masseter appears larger than the right which may represent some inflammatory reaction to the adjacent enlarged enhanced parotid. No discreet abscess seen in the masseter as well. No definite parotid gland calculus identified. IMPRESSION: 1. THE LEFT PAROTID GLAND APPEARS ENLARGED, SOMEWHAT HETEROGENEOUS, AND FAIRLY DIFFUSELY ENHANCED, PRESUMABLY REPRESENTING PAROTIDITIS. NO DISCREET PAROTID ABSCESS OR PAROTID DUCT CALCULUS IDENTIFIED. 2. ADJACENT MASSETER APPEARS SOMEWHAT LARGER THAN THE RIGHT MASSETER WHICH MAY REPRESENT SOME MILD INFLAMMATORY REACTION WELL. 3. THE EPIGLOTTIS IS OF NORMAL SIZE AND NO PREVERTEBRAL SOFT TISSUE SWELLING EVIDENT. NO DEFINITE ADENOPATHY IS SEEN. 4. MULTILEVEL DEGENERATIVE CHANGE IN THE CERVICAL SPINE. JOB NUMBER: [id number] [facility]
[2018-05-30] MEDS: CIPROFLOXACIN HCL 500 MG TABLET PO SCH ×2 (10:18→21:24)
[2018-05-30] MEDS: ASPIRIN 81 MG TABEC PO SCH (10:20)
[2018-05-30] MEDS: LISINOPRIL 20 MG TABLET PO SCH (10:20)
[2018-05-30] MEDS: AMLODIPINE BESYLATE 5MG TAB PO SCH (10:21)
[2018-05-30] MEDS: SENNOSIDES/DOCUSATE SODIUM UD CAPSULE PO SCH ×2 (10:21→21:25)
--- NOTE | 2018-05-30 11:02 | Physician Progress Note ---
Subjective - Date Date of Physician Progress Note: 05/30/18 - Subjective Subjective Comment: Pt says that he has no pain today and feels like the area is continuing to get smaller. Did have a small BM this morning doesn't want to take any more laxatives. Objective - Vital Signs Vital Signs: Vital Signs - Last 24 Hrs Temp Pulse Resp BP Pulse Ox 05/30/18 07:48 98.4 F 58 L 18 145/62 96 05/30/18 06:00 98.2 F 58 L 18 141/66 96 05/29/18 19:59 98.8 F 63 18 152/72 98 05/29/18 18:00 99.1 F 66 16 142/69 94 L 05/29/18 15:45 99.7 F H 59 L 16 157/65 96 - General General Appearance: Alert, Oriented x3, Cooperative, No acute distress - Head Head exam: Normal inspection Head exam detail: Other (Firm swelling in the left preauricular area, further reduced from yesterday. ) - Eye Eye exam: Normal appearance, PERRL Pupils: Normal accommodation - ENT ENT exam: Mucous membranes moist, Normal external ear exam, Normal orophraynx Ear exam: Normal external inspection. negative: External canal tenderness Nasal Exam: Normal inspection. negative: Discharge, Sinus tenderness Mouth exam: Normal external inspection, Tongue normal, Other (firm swelling of the L parotid gland, no warmth to palpation. ) Teeth exam: Dental caries (diffuse) Throat exam: Normal inspection. negative: Tonsillar erythema, Tonsillar exudate - Neck Neck exam: Normal inspection, Full ROM. negative: Tenderness - Respiratory Respiratory exam: Normal lung sounds bilaterally. negative: Decreased breath sounds, Respiratory distress, Wheezes - Cardiovascular Cardiovascular Exam: Regular rate, Normal rhythm, Normal heart sounds - GI/Abdominal GI/Abdominal exam: Soft, Normal bowel sounds. negative: Tenderness - Rectal Rectal exam: Deferred - exam: Deferred - Extremities Extremities exam: Normal inspection, Full ROM, Normal capillary refill. negative: Pedal edema, Tenderness - Back Back exam: Reports: Full ROM - Neurological Neurological exam: Alert, Normal gait, Oriented X3, Reflexes normal - Psychiatric Psychiatric exam: Normal affect, Normal mood - Skin Skin exam: Dry, Intact, Warm Assessment and Plan - Assessment and Plan (1) Parotiditis Current Visit: Yes Status: Acute Base Code: K11.20 - SIALOADENITIS, UNSPECIFIED Priority: High Comment: 05/29/18: - Improving. - Switched from IV vanco and clinda to PO clinda and cipro. Cx sensitivities are pending. Will call ENT/ID regarding rene on cx and their opinion, if treatment needed. - Naproxen 500mg BID PRN for pain - CT neck w/ contrast did not show abscess. No ENT needed for I&D - Encouraged the pt to milk the area, warm compresses, sour candy. - Will D/C likely in AM after 24 hours of improvement on oral abx. (2) HTN, goal below 150/90 Current Visit: Yes Status: Chronic Base Code: I10 - ESSENTIAL (PRIMARY) HYPERTENSION Priority: Low Comment: 05/29/18 - Continue home medications as prescribed. (3) DVT prophylaxis Current Visit: Yes Status: Acute Base Code: [id number] - Priority: Medium Comment: 05/29/18: - SCD's in bed. -Nursing to continue to encourage ambulation (4) DNR (do not resuscitate) Current Visit: Yes Status: Acute Base Code: Z66 - DO NOT RESUSCITATE Priority: High Comment: Discussed in depth with pt and he states that he would like to be DNR - Disposition Disposition: Home in PM or tomorrow AM with continued improvement on PO abx. Results - Labs Result Diagrams: 05/30/18 05:58 05/30/18 05:58 Labs Last 24 Hours: Laboratory Results - last 24 hr 05/29/18 05/30/18 05/30/18 11:32 05:58 05:58 WBC 7.5 RBC 4.18 L Hgb 12.4 L Hct 38.9 L MCV 93.1 MCH 29.6 MCHC 31.9 L RDW 16.3 H Plt Count 320 MPV 10.4 Gran % 66.8 Lymphocytes % 15.5 L Monocytes % 13.0 H Eosinophils % 3.6 Basophils % 1.1 Sodium 141 Potassium 3.9 Chloride 103 Carbon Dioxide 26.0 Anion Gap 12.0 BUN 13 Creatinine 1.2 Estimated GFR > 60 Random Glucose 92 Calcium 8.7 L Vancomycin Trough 15.1 H DVT/PE Assessment - Risk for VTE Risk for VTE: No Risk Level: Moderate (no chemical VTE prophylaxis indicated, will encourage ambulation) Risk Assessment Date: 05/27/18 Risk Assessment Time: 12:18 VTE Orders Placed or Will Be Placed: Yes - Active Medicaitons Current Medications: Current Medications Acetaminophen (Tylenol 500mg Tab) 1,000 mg PO Q6H PRN PRN Reason: PAIN - MILD (1-4) Amlodipine Besylate (Norvasc) 10 mg PO DAILY [facility] Last Admin: 05/30/18 10:21 Dose: 10 mg Aspirin (Ecotrin (Ec)) 81 mg PO DAILY [facility] Last Admin: 05/30/18 10:20 Dose: 81 mg Ciprofloxacin (Cipro) 750 mg PO Q12HR [facility] Last Admin: 05/30/18 10:18 Dose: Not Given Clindamycin HCl (Cleocin) 450 mg PO Q8HR [facility] Last Admin: 05/30/18 06:19 Dose: 450 mg Enoxaparin Sodium (Lovenox) 40 mg SQ DAILY [facility] Last Admin: 05/29/18 09:51 Dose: 40 mg Sodium Chloride () 1,000 mls @ 111 mls/hr IV .Q9H1M PRN PRN Reason: LARGE VOLUME IV Last Admin: 05/30/18 03:30 Dose: 111 mls/hr Lisinopril (Zestril) 20 mg PO DAILY [facility] Last Admin: 05/30/18 10:20 Dose: 20 mg Naproxen (Naprosyn) 500 mg PO Q12H PRN PRN Reason: PAIN - MILD TO MODERATE (1-7) Polyethylene Glycol (Miralax) 17 gm PO DAILY PRN PRN Reason: CONSTIPATION Last Admin: 05/27/18 10:51 Dose: 17 gm Senna/Docusate Sodium (Senna Plus) 2 each PO BID [facility] Last Admin: 05/30/18 10:21 Dose: 2 each AMI Plan - Labs Result Diagrams: 05/30/18 05:58 05/30/18 05:58
[2018-05-30] MEDS: ENOXAPARIN 40 MG/0.4 ML SYR SQ SCH (11:30)
--- NOTE | 2018-05-30 12:13 | Inpatient Certification ---
Inpatient Certification Admit to inpatient care: Based on my medical assessment, after consideration of patient's risk factors (age, co-morbidities and patient presenting symptoms and acuity), I expect that this patient will remain in the hospital greater than or equal to two midnights and that the services needed warrant inpatient care because: Patient Risk Factors: [pt's need for IV abx and IVF, monitoring for improvement. ] Estimated length of stay: [4] The patient may reasonably be expected to be discharged or transferred to a hospital within 96 hours after admission to [facility]. Services needed: [IV abx and IV fluids] Post hospital care (if known): [none] I certify that my determination is in accordance with my understanding of Medicare requirements for reasonable and necessary inpatient services. 05/30/18 12:12
[2018-05-30] MEDS ORDERED: CALCIUM CARBONATE 500 MG TAB.CHEW PO PRN (23:33)
[2018-05-31] MEDS: CLINDAMYCIN 150 MG CAP PO SCH (06:17)
[2018-05-31 06:20] LABS: BASO % 1.2 % (0-6); GRAN % 61.4 % (47-80); HEMATOCRIT 38.7 % (42.0-52.0); HEMOGLOBIN 12.5 gm/dl (14.0-18.0); LYMPH % 18.1 % (16-45); MEAN CELL VOLUME 92.4 fl (81-97); MEAN CORPUSCULAR HEMOGLOBIN 29.8 pg (27-33); MEAN CORPUSCULAR HGB CONC 32.3 g/dl (32-36); MEAN PLATELET VOLUME 9.9 fl (7.4-10.4); MONO % 14.3 % (0-9); PLATELET COUNT 332 K/uL (130-400); RED BLOOD COUNT 4.19 M/uL (4.40-5.70); RED CELL DISTRIBUTION WIDTH 16.3 % (11.5-14.5); WHITE BLOOD COUNT W/O DIFF 7.2 K/uL (4.2-12.2)
[2018-05-31] MEDS: 0.9 % SODIUM CHLORIDE 1000ML 1,000 ML IV PRN (06:27)
[2018-05-31 06:40] LABS: BLOOD UREA NITROGEN 13 mg/dL (8-23); CREATININE 1.2 mg/dL (0.7-1.2); EST GLOMERULAR FILTRATION RATE > 60 mL/min; GLUCOSE,RANDOM 92 mg/dL (74-109)
[2018-05-31] MEDS: SENNOSIDES/DOCUSATE SODIUM UD CAPSULE PO SCH (09:29)
[2018-05-31] MEDS: ASPIRIN 81 MG TABEC PO SCH (09:29)
[2018-05-31] MEDS: LISINOPRIL 20 MG TABLET PO SCH (09:29)
[2018-05-31] MEDS: AMLODIPINE BESYLATE 5MG TAB PO SCH (09:30)
[2018-05-31] MEDS: CIPROFLOXACIN HCL 500 MG TABLET PO SCH (09:30)
[2018-05-31] MEDS: ENOXAPARIN 40 MG/0.4 ML SYR SQ SCH (09:31)
--- NOTE | 2018-05-31 10:01 | Discharge Summary ---
Providers Discharge Summary Date: 05/31/18 Date of admission: 05/26/18 13:46 Expected Date of Discharge: 05/31/18 Attending physician: IVAN JENNINGS Primary care physician: JOSEPHINE QUICK D.O. Consults: Consult Orders 05/28/18 11:18 Consult NOW Consulting Provider: Jose Luis Mccoy Physician Instructions: parotitis Reason For Exam: Surgical eval for need of I&D Physical Exam - Vital Signs Vital Signs: Vital Signs - Last 24 Hrs Temp Pulse Resp BP Pulse Ox 05/31/18 06:00 97.9 F 47 L 18 144/62 96 05/30/18 23:51 98.1 F 57 L 18 149/68 97 05/30/18 21:00 18 05/30/18 20:00 98.1 F 55 L 18 147/68 94 L 05/30/18 18:00 98.6 F 61 16 162/73 96 05/30/18 15:30 99.1 F 55 L 16 145/62 94 L - General General Appearance: Alert, Oriented x3, Cooperative, No acute distress - Head Head exam: Normal inspection Head exam detail: Other (Firm swelling in the left preauricular area, roughly 1/ 3 the size since admission ) - Eye Eye exam: Normal appearance, PERRL Pupils: Normal accommodation - ENT ENT exam: Mucous membranes moist, Normal external ear exam, Normal orophraynx Ear exam: Normal external inspection. negative: External canal tenderness Nasal Exam: Normal inspection. negative: Discharge, Sinus tenderness Mouth exam: Normal external inspection, Tongue normal, Other (firm swelling of the L parotid gland, no warmth to palpation. ) Teeth exam: Dental caries (diffuse) Throat exam: Normal inspection. negative: Tonsillar erythema, Tonsillar exudate - Neck Neck exam: Normal inspection, Full ROM. negative: Tenderness - Respiratory Respiratory exam: Normal lung sounds bilaterally. negative: Decreased breath sounds, Respiratory distress, Wheezes - Cardiovascular Cardiovascular Exam: Regular rate, Normal rhythm, Normal heart sounds - GI/Abdominal GI/Abdominal exam: Soft, Normal bowel sounds. negative: Tenderness - Rectal Rectal exam: Deferred - exam: Deferred - Extremities Extremities exam: Normal inspection, Full ROM, Normal capillary refill. negative: Pedal edema, Tenderness - Back Back exam: Reports: Full ROM - Neurological Neurological exam: Alert, Normal gait, Oriented X3, Reflexes normal - Psychiatric Psychiatric exam: Normal affect, Normal mood - Skin Skin exam: Dry, Intact, Warm Hospitalization - Hospitalization Admission Diagnosis: Parotitis - Problem List/Discharge Diagnosis (1) Parotiditis Current Visit: Yes Status: Acute Base Code: K11.20 - SIALOADENITIS, UNSPECIFIED Comment: 05/30/18: - Improving. - Switched from IV vanco and clinda to PO clinda and cipro. Cx sensitivities are pending. Cx showed rene, spoke to ENT controls engineer and said not to treat for that. - Naproxen 500mg BID PRN for pain - CT neck w/ contrast did not show abscess. No ENT needed for I&D - Encouraged the pt to milk the area, warm compresses, sour candy. - D/C today (2) HTN, goal below 150/90 Current Visit: Yes Status: Chronic Base Code: I10 - ESSENTIAL (PRIMARY) HYPERTENSION Comment: 05/30/18 - Continue home medications as prescribed. (3) DVT prophylaxis Current Visit: Yes Status: Acute Base Code: [id number] - Comment: 05/30/18: - SCD's in bed. -Nursing to continue to encourage ambulation (4) DNR (do not resuscitate) Current Visit: Yes Status: Acute Base Code: Z66 - DO NOT RESUSCITATE Comment: Discussed in depth with pt and he states that he would like to be DNR - Disposition Home today - Hospitalization Course Disposition: Home Health Service Hospital Course: Past Medical History: dental caries, hypertension, [place], s/p cholecystecomy/colon resection, bladder cancer treated with chemo, kidney stones, current everyday smoker of 60 years, Hearing loss ED course: Patient is an 87 year old male who presented to the ED on 05/26/18 complaining of painful left sided facial swelling in the preauricular region that extends down to the neck. He first noticed the swelling a week and a half ago, but believed it was related to his dental issues. He went in to visit his dentist, who noted that the parotid gland was swollen and that when pressed firmly it expressed pus through stensen's duct and recommended he come to the ER. The patient notes that he had been taking Aleve and motrin at home to control the pain, which helped quite a bit, although Tylenol had no effect. It causes him some mild increase in pain to eat, but otherwise nothing has particularly exacerbated the pain. It is constant, and not correlated to any particular timing. Pt was admitted for IV abx and possible surgical drainage of parotid gland. Hospital course: Pt was treated with IV clinda and vanco x 3 days and then switched to PO clinda and cipro when cx's didn't identify staph aureus. Pt was monitored on orals for 24 hours to ensure that there was continued improvement without vanco. Pt had a neck CT with contrast that did not show any abscess that needed to be drained by ENT. ENT recommended to continue abx, warm compresses, milking of the area, and sour candy. The pt's swelling of the parotid gland reduced to roughly 1/3 of what it was on admission (roughly to the size of a golf ball prior to d/c). His pain subsided and didn't require any pain medication for the last 48 hours of the admission. Pt was discharged in good condition, to follow up with primary in 3-5 days to monitor for continued improvement. Pt to present to ED if worsening occurs. Procedures: Imaging and X-Rays 05/29/18 09:47 SOFT TISSUE NECK W CONTRAST [CT] Stat Abnormal Labs: Abnormal Lab Results 05/26/18 05/26/18 05/27/18 Range/Units 11:55 11:55 05:45 WBC 12.3 H (4.2-12.2) K/uL RBC (4.40-5.70) M/uL Hgb (14.0-18.0) gm/dl Hct (42.0-52.0) % MCHC (32-36) g/dl RDW 16.0 H 16.1 H (11.5-14.5) % MPV 11.3 H (7.4-10.4) fl Lymphocytes % 8.8 L (16-45) % Monocytes % 11.4 H (0-9) % Lymphocytes 15.0 L (16-45) % Monocytes 13.0 H (0-9) % Random Glucose 125 H (74-109) mg/dL Calcium (8.8-10.2) mg/dL Vancomycin Trough (5.0-10.0) ug/mL 05/28/18 05/28/18 05/28/18 Range/Units 05:58 05:58 18:45 WBC (4.2-12.2) K/uL RBC 4.16 L (4.40-5.70) M/uL Hgb 12.3 L (14.0-18.0) gm/dl Hct 38.7 L (42.0-52.0) % MCHC 31.8 L (32-36) g/dl RDW 16.1 H (11.5-14.5) % MPV 11.0 H (7.4-10.4) fl Lymphocytes % (16-45) % Monocytes % (0-9) % Lymphocytes 12.0 L (16-45) % Monocytes 16.0 H (0-9) % Random Glucose (74-109) mg/dL Calcium 8.7 L (8.8-10.2) mg/dL Vancomycin Trough 20.9 H* (5.0-10.0) ug/mL 05/29/18 05/29/18 05/29/18 Range/Units 06:28 06:28 11:32 WBC (4.2-12.2) K/uL RBC 4.13 L (4.40-5.70) M/uL Hgb 12.1 L (14.0-18.0) gm/dl Hct 38.6 L (42.0-52.0) % MCHC 31.3 L (32-36) g/dl RDW 16.1 H (11.5-14.5) % MPV (7.4-10.4) fl Lymphocytes % 12.9 L (16-45) % Monocytes % 11.2 H (0-9) % Lymphocytes (16-45) % Monocytes (0-9) % Random Glucose (74-109) mg/dL Calcium 8.7 L (8.8-10.2) mg/dL Vancomycin Trough 15.1 H (5.0-10.0) ug/mL 05/30/18 05/30/18 05/31/18 Range/Units 05:58 05:58 06:11 WBC (4.2-12.2) K/uL RBC 4.18 L 4.19 L (4.40-5.70) M/uL Hgb 12.4 L 12.5 L (14.0-18.0) gm/dl Hct 38.9 L 38.7 L (42.0-52.0) % MCHC 31.9 L (32-36) g/dl RDW 16.3 H 16.3 H (11.5-14.5) % MPV (7.4-10.4) fl Lymphocytes % 15.5 L (16-45) % Monocytes % 13.0 H 14.3 H (0-9) % Lymphocytes (16-45) % Monocytes (0-9) % Random Glucose (74-109) mg/dL Calcium 8.7 L (8.8-10.2) mg/dL Vancomycin Trough (5.0-10.0) ug/mL Condition at Discharge: (1) Good VTE Discharge VTE Reason For No Overlap Therapy: Not Indicated Discharge Medications - Discharge Medications Prescriptions: Clindamycin HCl [Cleocin HCl] 450 mg PO Q8HR 9 Days #27 cap Ciprofloxacin HCl [Cipro] 750 mg PO Q12HR 9 Days #18 tablet Naproxen [Naprosyn] 500 mg PO Q12H PRN #30 tablet PRN Reason: Pain - Mild To Moderate (1-7) Home Medications: Ambulatory Orders Lisinopril 20 mg PO DAILY 04/26/15 [Last Taken Unknown] Amlodipine Besylate [Norvasc] 10 mg PO DAILY 05/29/18 [Last Taken Unknown] Ciprofloxacin HCl [Cipro] 750 mg PO Q12HR 9 Days #18 tablet 05/31/18 [Last Taken Unknown] Clindamycin HCl [Cleocin HCl] 450 mg PO Q8HR 9 Days #27 cap 05/31/18 [Last Taken Unknown] Naproxen [Naprosyn] 500 mg PO Q12H PRN #30 tablet 05/31/18 [Last Taken Unknown] Discharge Plan - Discharge Instructions Activity at Discharge: Increase Activity as Tolerated Diet at Discharge: Advance to Usual Diet Additional Instructions: Continue diet as tolerated that doesn't cause much pain. Continue activity as tolerated. No special restrictions required. Follow up with PCP to monitor for continued improvement in 3-5 days. Continue taking the antibiotics as prescribed until finished. Take naproxen for pain as needed (do not use aleve or ibuprofen when you are taking naproxen. Take with food) If worsening of swelling, significant increase in pain, or fever develops, go to ER for evaluation. Quality Measures - Quality Measures Quality Measures: Advance Directives, Documentation of Current Medications in Medical Record, Elder Maltreatment Screen and Follow-Up Plan, Screening for High Blood Pressure and F/U Documented - Current Medications Quality Measure: Measure #130: Documentation of Current Medications Documentation of Current Medications: <Current Medications Documented/Reviewed> [F9524] - Blood Pressure Screening Quality Measure: Screening for High Blood Pressure and Follow-Up Documented Does Patient Have Any of the Following: Active Dx of HTN Blood Pressure Classification: Pre-Hypertensive BP Reading Systolic Measurement: 135 Diastolic Measurement: 66 Screening for High Blood Pressure: Patient Exclusion, Hx of HTN [G9744] - Advance Directives Quality Measure: Measure #47: Care Plan Advance Directives Established: Yes Advance Directives Information Provided To Patient: Already Provided Advance Directives on File: No Living Will: Yes Power of Flue Cleaner: Yes Power of Flue Cleaner Name: Katie Patel Advance Care Planning: <Care Plan/Decision Maker Documented; Discussed & Documented> [[id number]] - Elder Abuse Suspicion Index Screening: Elder Abuse Suspicion Index Screening Rely on people for bathing, dressing, shopping, banking, etc: No Prevented from getting food, clothes, medication, etc: No Made to feel shamed or threatened by someone: No Forced to sign papers or use money against will: No Feel afraid, touched in ways not wanted or hurt physically: No Poor eye contact, withdrawn, malnourished, cuts or bruises: No Screening Result: Negative result EASI Reference Information: Michael TSAI, Ritesh C, Kevin D, Hilario Floyd.Development and validation of a tool to assist physicians identification of elder abuse: The Elder Abuse Suspicion Index (EASI ). Journal of Elder Abuse and Neglect, 2008; 20 (3): 276-300. - Elder Maltreatment Screen Quality Measures: Elder Maltreatment Screen and Follow-Up Plan Elder Maltreatment Screen: <Negative, No Follow-Up Plan Required> [G1457]
== END 2018-05-31 11:25 | disposition home health service (06) | DRG 156 ==
LOC: ER 11:32 → MEDSURG 13:46
PROVIDERS: ADMIT Internal Medicine; ATTEND Internal Medicine
DX: K11.20 Sialoadenitis, unspecified (principal); I10 Essential (primary) hypertension; I25.2 Old myocardial infarction; R00.1 Bradycardia, unspecified; Z72.0 Tobacco use; Z85.51 Personal history of malignant neoplasm of bladder; Z87.442 Personal history of urinary calculi; Z66 Do not resuscitate
CPT/HCPCS: 70491; 80048; 80202; 85025; 85027; 96365; 96374; 96375; 99223; 99232; 99233; 99239; 99285; J1650; J1885; J7060